=== PATIENT | female | born 1960 | race Caucasian/White ===

== ENCOUNTER 2019-09-07 17:07 | Inpatient (IN) | payer OTHER ==
[~2019-09-07] VITALS: Ht 165.1 cm; Wt 78.3 kg
[2019-09-07 18:32] LABS: Basophils # (auto) 0 10 ^3/uL (0-0.2); Eosinophils # (auto) 0.1 10 ^3/uL (0-0.8); Lymphocytes # (auto) 1.3 10 ^3/uL (0.4-5.4); Monocytes # (auto) 0.5 10 ^3/uL (0-1.3)
[2019-09-07 18:33] LABS: Basophils % (auto) 0.7 % (0.0-2.0); Eosinophils % (auto) 1.9 % (0.0-7.0); Hematocrit 23.2 % (36.0-46.0); Lymphocytes % (auto) 26.5 % (10.0-50.0); Mean Corpuscular Hemoglobin 22.1 pg (28.0-32.0); Mean Corpuscular Hgb Conc. 29.8 g/dL (32.0-36.0); Mean Corpuscular Volume 74.2 fL (80.0-100.0); Monocytes % (auto) 10.5 % (0.0-12.0); Neutrophils # (auto) 3.1 10 ^3/uL (1.6-8.6); Neutrophils % (auto) 60.4 % (37.0-80.0); Nucleated Red Blood Cells % 0.2 %; Platelet Count (auto) 440 10^3/uL (140-450); Red Blood Cells 3.12 10^6/uL (4.0-5.20); White Blood Cell 5.1 10^3/uL (4.4-10.8)
[2019-09-07 18:36] LABS: Red Cell Distribution Width 20.5 % (11.8-14.3)
[2019-09-07 18:37] LABS: Hemoglobin 6.9 g/dL (12.2-16.2)
[2019-09-07 18:49] LABS: Albumin 3.4 g/dL (3.4-5.0); Calcium 8.6 mg/dL (8.5-10.1); Potassium 3.6 mmol/L (3.5-5.1)
[2019-09-07 18:54] LABS: BUN/Creatinine Ratio 16.1; Bilirubin, Total 0.2 mg/dL (0.2-1.0); Total Protein 6.9 g/dL (6.4-8.2)
[2019-09-07] MEDS ORDERED: MORPHINE SULF INJ 2 MG/ML SYRINGE 1ML IV PRN (19:00)
[2019-09-07] MEDS ORDERED: NITROGLYCERIN 0.4 MG SL TAB SL PRN (19:00)
[2019-09-07 19:15] LABS: Partial Thromboplastin Time 23.4 sec (23.64-32.05)
[2019-09-07 19:35] VITALS: BP 152/78
[2019-09-08] MEDS ORDERED: CLOP75TA28 (02:36)
[2019-09-08] MEDS ORDERED: LEV25T (02:36)
[2019-09-08] MEDS ORDERED: RANI75SY (02:36)
[2019-09-08] MEDS ORDERED: ATOR10TA (02:36)
[2019-09-08] MEDS ORDERED: MET50T ×2 (02:36)
[2019-09-08] MEDS ORDERED: ASPI-404 (02:36)
[2019-09-08 05:13] VITALS: BP 129/65
[2019-09-08 06:31] LABS: Basophils # (auto) 0 10 ^3/uL (0-0.2); Basophils % (auto) 0.7 % (0.0-2.0); Eosinophils # (auto) 0.1 10 ^3/uL (0-0.8); Lymphocytes # (auto) 1.2 10 ^3/uL (0.4-5.4); Monocytes # (auto) 0.5 10 ^3/uL (0-1.3); Neutrophils # (auto) 2.5 10 ^3/uL (1.6-8.6)
[2019-09-08 06:33] LABS: Eosinophils % (auto) 2.5 % (0.0-7.0); Hematocrit 26.3 % (36.0-46.0); Hemoglobin 7.9 g/dL (12.2-16.2); Lymphocytes % (auto) 27.3 % (10.0-50.0); Mean Corpuscular Hemoglobin 23.7 pg (28.0-32.0); Mean Corpuscular Hgb Conc. 30.2 g/dL (32.0-36.0); Mean Corpuscular Volume 78.4 fL (80.0-100.0); Monocytes % (auto) 11.4 % (0.0-12.0); Neutrophils % (auto) 58.1 % (37.0-80.0); Nucleated Red Blood Cells % 0.2 %; Platelet Count (auto) 418 10^3/uL (140-450); Red Blood Cells 3.35 10^6/uL (4.0-5.20); White Blood Cell 4.3 10^3/uL (4.4-10.8)
[2019-09-08 06:46] LABS: Red Cell Distribution Width 22.5 % (11.8-14.3)
[2019-09-08 06:48] LABS: Calcium 8.6 mg/dL (8.5-10.1); INR 1.02 (0.9-1.15); Potassium 3.6 mmol/L (3.5-5.1)
[2019-09-08 06:52] LABS: BUN/Creatinine Ratio 17.3; Bilirubin, Total 0.4 mg/dL (0.2-1.0); Total Protein 6.3 g/dL (6.4-8.2)
[2019-09-08 07:00] LABS: Folate (Folic Acid) 20.26 ng/mL (5.38-24)
[2019-09-08 07:35] LABS: % Iron Saturation 2.2 % (15-50)
[2019-09-08 08:00] VITALS: BP 131/58
[2019-09-08 09:00] VITALS: BP 131/58
[2019-09-08] MEDS: SUMAtriptan SUCCINATE 25 MG TAB PO PRN (09:36)
[2019-09-08] MEDS: ENOXAPARIN SOD 40 MG/0.4 ML SYRINGE SC SCH (09:36)
[2019-09-08] MEDS ORDERED: OMNIPAQUE ORAL SOLN 500ml 12mg/ml PO ONE (11:00)
[2019-09-08] MEDS ORDERED: IOHEXOL 300 MG/ML 100ML BOTTLE IJ ONE ×2 (11:00→14:38)
[2019-09-08] MEDS: HYDROcodone-ACET 10/325MG TAB PO PRN ×2 (11:35→21:03)
[2019-09-08 13:00] VITALS: BP 158/93
[2019-09-08 17:00] VITALS: BP 102/57
[2019-09-08 21:23] VITALS: BP 115/69
[2019-09-09 05:00] VITALS: BP 118/69
[2019-09-09] MEDS: LEVOTHYROXINE SODIUM 50 MCG TAB PO SCH (06:19)
[2019-09-09 06:58] LABS: Basophils # (auto) 0 10 ^3/uL (0-0.2); Eosinophils # (auto) 0.1 10 ^3/uL (0-0.8); Hemoglobin 8.4 g/dL (12.2-16.2); Lymphocytes # (auto) 1.1 10 ^3/uL (0.4-5.4); Neutrophils # (auto) 2.8 10 ^3/uL (1.6-8.6); White Blood Cell 4.6 10^3/uL (4.4-10.8)
[2019-09-09 06:59] LABS: Basophils % (auto) 0.7 % (0.0-2.0); Eosinophils % (auto) 2.6 % (0.0-7.0); Hematocrit 27.7 % (36.0-46.0); Lymphocytes % (auto) 23.8 % (10.0-50.0); Mean Corpuscular Hemoglobin 23.3 pg (28.0-32.0); Mean Corpuscular Hgb Conc. 30.3 g/dL (32.0-36.0); Mean Corpuscular Volume 76.9 fL (80.0-100.0); Monocytes # (auto) 0.6 10 ^3/uL (0-1.3); Monocytes % (auto) 12.3 % (0.0-12.0); Neutrophils % (auto) 60.6 % (37.0-80.0); Nucleated Red Blood Cells % 0.2 %; Platelet Count (auto) 431 10^3/uL (140-450); Red Blood Cells 3.61 10^6/uL (4.0-5.20)
[2019-09-09 07:00] LABS: Red Cell Distribution Width 22.3 % (11.8-14.3)
[2019-09-09 08:39] VITALS: BP 124/77
[2019-09-09] MEDS: ENOXAPARIN SOD 40 MG/0.4 ML SYRINGE SC SCH (08:59)
[2019-09-09 12:37] VITALS: BP 161/90
[2019-09-09 14:00] LABS: Basophils # (auto) 0 10 ^3/uL (0-0.2); Hemoglobin 8.8 g/dL (12.2-16.2); Monocytes # (auto) 0.5 10 ^3/uL (0-1.3)
[2019-09-09 14:02] LABS: Basophils % (auto) 0.3 % (0.0-2.0); Eosinophils # (auto) 0 10 ^3/uL (0-0.8); Eosinophils % (auto) 0.8 % (0.0-7.0); Hematocrit 29.1 % (36.0-46.0); Lymphocytes % (auto) 17.1 % (10.0-50.0); Mean Corpuscular Hemoglobin 23.6 pg (28.0-32.0); Mean Corpuscular Hgb Conc. 30.1 g/dL (32.0-36.0); Mean Corpuscular Volume 78.4 fL (80.0-100.0); Neutrophils # (auto) 4.5 10 ^3/uL (1.6-8.6); Neutrophils % (auto) 73.8 % (37.0-80.0); Platelet Count (auto) 444 10^3/uL (140-450); Red Blood Cells 3.71 10^6/uL (4.0-5.20); Red Cell Distribution Width 22.5 % (11.8-14.3); White Blood Cell 6.1 10^3/uL (4.4-10.8)
[2019-09-09] MEDS: HYDROcodone-ACET 10/325MG TAB PO PRN ×2 (15:24→22:24)
[2019-09-09 17:08] VITALS: BP 138/71
[2019-09-09 17:35] LABS: Urine Bacteria NONE SEEN /hpf (None Seen); Urine Blood Negative /uL (Negative); Urine Specific Gravity 1.018 (1.001-1.035); Urine WBC 17 /hpf (0 - 5)
[2019-09-09 22:00] VITALS: BP 140/80
[2019-09-10 05:00] VITALS: BP 124/71
[2019-09-10 06:40] LABS: Basophils # (auto) 0 10 ^3/uL (0-0.2); Eosinophils # (auto) 0.1 10 ^3/uL (0-0.8); Hematocrit 26.6 % (36.0-46.0); Hemoglobin 8.1 g/dL (12.2-16.2); Lymphocytes # (auto) 1.1 10 ^3/uL (0.4-5.4); Mean Corpuscular Hemoglobin 23.5 pg (28.0-32.0); Monocytes # (auto) 0.5 10 ^3/uL (0-1.3); Monocytes % (auto) 12.8 % (0.0-12.0); Nucleated Red Blood Cells % 0.1 %; Red Blood Cells 3.46 10^6/uL (4.0-5.20); White Blood Cell 3.8 10^3/uL (4.4-10.8)
[2019-09-10 06:43] LABS: Basophils % (auto) 0.9 % (0.0-2.0); Eosinophils % (auto) 3.4 % (0.0-7.0); Lymphocytes % (auto) 28.4 % (10.0-50.0); Mean Corpuscular Hgb Conc. 30.6 g/dL (32.0-36.0); Mean Corpuscular Volume 76.9 fL (80.0-100.0); Neutrophils # (auto) 2.1 10 ^3/uL (1.6-8.6); Neutrophils % (auto) 54.5 % (37.0-80.0); Platelet Count (auto) 415 10^3/uL (140-450)
[2019-09-10 06:49] LABS: Red Cell Distribution Width 22.1 % (11.8-14.3)
[2019-09-10] MEDS: LEVOTHYROXINE SODIUM 50 MCG TAB PO SCH (06:59)
[2019-09-10] MEDS: ENOXAPARIN SOD 40 MG/0.4 ML SYRINGE SC SCH (08:39)
[2019-09-10] MEDS: SUMAtriptan SUCCINATE 25 MG TAB PO PRN (08:40)
[2019-09-10] MEDS: HYDROcodone-ACET 10/325MG TAB PO PRN ×2 (08:40→22:10)
[2019-09-10 08:44] VITALS: BP 128/74
[2019-09-10 13:19] VITALS: BP 140/85
[2019-09-10] MEDS ORDERED: GOLYTELY 4L KIT PO ONE (14:00)
[2019-09-10 16:53] VITALS: BP 137/80
[2019-09-10 22:00] VITALS: BP 139/82
[2019-09-11 05:00] VITALS: BP 117/75
[2019-09-11 05:49] LABS: Basophils # (auto) 0 10 ^3/uL (0-0.2); Eosinophils # (auto) 0.1 10 ^3/uL (0-0.8); Lymphocytes # (auto) 0.8 10 ^3/uL (0.4-5.4); Monocytes # (auto) 0.5 10 ^3/uL (0-1.3); Neutrophils # (auto) 2.1 10 ^3/uL (1.6-8.6)
[2019-09-11 05:53] LABS: Basophils % (auto) 0.7 % (0.0-2.0); Eosinophils % (auto) 2.6 % (0.0-7.0); Hematocrit 27.6 % (36.0-46.0); Hemoglobin 8.5 g/dL (12.2-16.2); Lymphocytes % (auto) 23.7 % (10.0-50.0); Mean Corpuscular Hemoglobin 23.4 pg (28.0-32.0); Mean Corpuscular Hgb Conc. 30.7 g/dL (32.0-36.0); Mean Corpuscular Volume 76.4 fL (80.0-100.0); Monocytes % (auto) 13.7 % (0.0-12.0); Neutrophils % (auto) 59.3 % (37.0-80.0); Nucleated Red Blood Cells % 0.2 %; Platelet Count (auto) 415 10^3/uL (140-450); Red Blood Cells 3.61 10^6/uL (4.0-5.20); White Blood Cell 3.6 10^3/uL (4.4-10.8)
[2019-09-11 06:04] LABS: Red Cell Distribution Width 21.6 % (11.8-14.3)
[2019-09-11] MEDS: HYDROcodone-ACET 10/325MG TAB PO PRN ×3 (06:05→20:16)
[2019-09-11] MEDS: LEVOTHYROXINE SODIUM 50 MCG TAB PO SCH (06:05)
[2019-09-11 09:00] VITALS: BP 115/72
[2019-09-11] MEDS: ENOXAPARIN SOD 40 MG/0.4 ML SYRINGE SC SCH (09:42)
[2019-09-11] MEDS ORDERED: PATIENTS OWN MEDICATION (FERRLECIT 125 MG) IV SCH (12:30)
[2019-09-11 13:00] VITALS: BP 128/77
[2019-09-11] MEDS ORDERED: SODIUM FERR GLUC 125 MG in NS 100 ML IV SCH (13:00)
[2019-09-11] MEDS ORDERED: NALOXONE HCL 0.4 MG/ML VIAL ONE (13:22)
[2019-09-11] MEDS ORDERED: LIDOCAINE VISCOUS 2% 15ML UD ONE (13:22)
[2019-09-11] MEDS ORDERED: FLUMAZENIL 0.1 MG/ML INJ 10ML MDV IV ONE (13:22)
[2019-09-11] MEDS ORDERED: SODIUM CHLORIDE LOCK 10 ML ONE (13:22)
[2019-09-11] MEDS ORDERED: diphenhdrAMINE HCL 50 MG/1 ML VL ONE (13:23)
[2019-09-11 14:01] LABS: INR 1.01 (0.9-1.15); Partial Thromboplastin Time < 20.0 sec (23.64-32.05)
[2019-09-11 14:04] LABS: Albumin 3.6 g/dL (3.4-5.0); Calcium 8.9 mg/dL (8.5-10.1); Potassium 3.4 mmol/L (3.5-5.1)
[2019-09-11 14:07] LABS: BUN/Creatinine Ratio 14.1; Bilirubin, Total 0.5 mg/dL (0.2-1.0); Total Protein 7.5 g/dL (6.4-8.2)
[2019-09-11] MEDS: fentaNYL CITRATE 100 MCG/2 ML VL ONE ×3 (14:21→14:31)
[2019-09-11] MEDS: MIDAZOLAM HCL 5 MG/ML-1ML VIAL ONE ×3 (14:21→14:31)
[2019-09-11] MEDS ORDERED: MIDAZOLAM HCL 5 MG/ML-1ML VIAL ONE (14:41)
[2019-09-11] MEDS ORDERED: fentaNYL CITRATE 100 MCG/2 ML VL ONE (14:41)
[2019-09-11] MEDS ORDERED: IRON SUCROSE COMPLEX 200 MG in SODIUM CHL 0.9% 100 ML IV SCH (16:10)
[2019-09-11 16:57] VITALS: BP 148/80
[2019-09-11 22:00] VITALS: BP 131/78
[2019-09-12 05:00] VITALS: BP 135/79
[2019-09-12] MEDS: HYDROcodone-ACET 10/325MG TAB PO PRN ×3 (05:35→14:31)
[2019-09-12] MEDS: LEVOTHYROXINE SODIUM 50 MCG TAB PO SCH (06:14)
[2019-09-12 09:00] VITALS: BP 109/61
[2019-09-12] MEDS: ENOXAPARIN SOD 40 MG/0.4 ML SYRINGE SC SCH (10:28)
[2019-09-12 13:00] VITALS: BP 113/74
[2019-09-12] MEDS ORDERED: FERR200T3 PO (13:09)
[2019-09-12 14:45] VITALS: BP 113/74
[2019-09-12 16:43] VITALS: BP 144/86
== END 2019-09-12 16:50 | DRG 812 ==
LOC: EEVIPCON 17:07 → ER 17:07 → OVERFLOW 17:08 → EAST 19:51
PROVIDERS: ADMIT Internal Medicine; ATTEND Internal Medicine
PROC: 30233N1 Transfusion of Nonautologous Red Blood Cells into Peripheral Vein, Percutaneous Approach (ICD-10-PCS; principal; 2019-09-08)
PROC: 0DBP8ZX Excision of Rectum, Via Natural or Artificial Opening Endoscopic, Diagnostic (ICD-10-PCS; 2019-09-11)
PROC: 0DJ08ZZ Inspection of Upper Intestinal Tract, Via Natural or Artificial Opening Endoscopic (ICD-10-PCS; 2019-09-11 14:15)
DX: D50.9 Iron deficiency anemia, unspecified (principal); I25.10 Atherosclerotic heart disease of native coronary artery without angina pectoris; J45.909 Unspecified asthma, uncomplicated; R73.9 Hyperglycemia, unspecified; R06.09 Other forms of dyspnea; K62.1 Rectal polyp; I10 Essential (primary) hypertension; Z82.49 Family history of ischemic heart disease and other diseases of the circulatory system; Z86.19 Personal history of other infectious and parasitic diseases; Z82.3 Family history of stroke; Z83.3 Family history of diabetes mellitus; Z82.0 Family history of epilepsy and other diseases of the nervous system; Z80.0 Family history of malignant neoplasm of digestive organs; Z86.73 Personal history of transient ischemic attack (TIA), and cerebral infarction without residual deficits; Z87.891 Personal history of nicotine dependence; Z87.442 Personal history of urinary calculi; Z90.711 Acquired absence of uterus with remaining cervical stump; Z95.1 Presence of aortocoronary bypass graft; Z90.49 Acquired absence of other specified parts of digestive tract; Z95.5 Presence of coronary angioplasty implant and graft
CPT/HCPCS: 36415; 43235; 45380; 71046; 74178; 80053; 81001; 82270; 82607; 82746; 83540; 83550; 83615; 84443; 84484; 85025; 85045; 85610; 85730; 86850; 86880; 86900; 86901; 86920; 93005; 93886; G0378; J1756; J2250